=== PATIENT | male | born 1995 | race Caucasian/White ===

== ENCOUNTER 2025-03-17 04:23 | Inpatient (IN) | payer BC ==
[~2025-03-17] VITALS: Ht 177.8 cm; Wt 124.6 kg
--- NOTE | 2025-03-17 04:43 | ED.PDOC ---
GI ASSESSMENT HPI Comments 29-year-old male who came to ER for abdominal pain. Patient states about 2 hours ago, he woke up due to sudden-onset abdominal pain, right lower quadrant, sharp, stabbing, nonradiating, constant, associated nausea and vomiting. Denies any prior history of similar abdominal pain. Denies any history of abdominal surgeries. Chief Complaint: Abdominal Pain Time Seen by MD: 04:42 Primary Care Provider: REA Das Notes: Nurses Notes Allergies: Coded Allergies: NO KNOWN ALLERGIES (Unverified , 10/17/15) Information Source: Patient Mode of Arrival: Ambulatory Timing: Hours Duration: Since onset Prehospital treatment: None Quality: Sharp, Stabbing Vomitus: Watery Stool: Normal Severity: Moderate Recent: None Recent Hx of: None Pain Location: RLQ Modifying Factors: Nothing Associated sign and symptoms: Nausea, Vomiting, Abdominal Pain Past Medical History PAST MEDICAL HISTORY: Denies Surgical History: Denies all surgeries Family History Family History: Unknown Social History Smoker: Non-Smoker Alcohol: Occasionally Drugs: Denies Drug Use Lives In: Home Constitutional: denies: chills, diaphoresis, fatigue, fever, malaise, sweats, weakness, others EENTM: denies: blurred vision, double vision, ear bleeding, ear discharge, ear drainage, ear pain, ear ringing, eye pain, eye redness, hearing loss, mouth pain, mouth swelling, nasal discharge, nose bleeding, nose congestion, nose pain, photophobia, tearing, throat pain, throat swelling, voice changes, others Respiratory: denies: cough, hemoptysis, orthopnea, SOB at rest, shortness of breath, SOB with excertion, stridor, wheezing, others Cardiovascular: denies: chest pain, dizzy spells, diaphoresis, Dyspnea on exertion, edema, irregular heart beat, left arm pain, lightheadedness, palpitations, PND, syncope, others Gastrointestinal: reports: abdominal pain, nausea, vomiting; denies: abdomen distended, blood streaked bowels, constipated, diarrhea, dysphagia, difficulty swallowing, hematemesis, melena, poor appetite, poor fluid intake, rectal bleeding, rectal pain, others Genitourinary: denies: burning, dysuria, flank pain, frequency, hematuria, incontinence, penile discharge, penile sore, pain, testicle pain, testicle swelling, urgency, others Neurological: denies: dizziness, fainting, headache, left sided numbness, left sided weakness, numbness, paresthesia, pre-existing deficit, right sided numbness, right sided weakness, seizure, speech problems, tingling, tremors, weakness, others Musculoskeletal: denies: back pain, gout, joint pain, joint swelling, muscle pain, muscle stiffness, neck pain, others Integumetry: denies: bruises, change in color, change in hair/nails, dryness, laceration, lesions, lumps, rash, wounds, others Allergic/Immunocompromised: denies: Difficulty Healing, Frequent Infections, Hives, Itching, others Hematologic/Lymphatic: denies: anemia, blood clots, easy bleeding, easy bruising, swollen glands, others Endocrine: denies: excessive hunger, excessive sweating, excessive thirst, excessive urination, flushing, intolerance to cold, intolerance to heat, unexplained weight gain, unexplained weight loss, others Psychiatric: denies: anxiety, bipolar disorder, depression, hopeless, panic disorder, schizophrenia, sleepless, suicidal, others Physical Exam General Appearance: No Apparent Distress, Normal HEENT: Normal ENT Inspection, Pharynx Normal, TMs Normal Neck: Full Range of Motion, Non-Tender, Normal, Normal Inspection Respiratory: Chest Non-Tender, Lungs Clear, No Accessory Muscle Use, No Respiratory Distress, Normal Breath Sounds Cardiovascular: No Edema, No JVD, No Murmur, No Gallop, Normal Peripheral Pulses, Regular Rate/Rhythm Breast Exam: Deferred Gastrointestinal: No Organomegaly, No Pulsatile Mass, Normal Bowel Sounds, RLQ, Soft, Tenderness Genitalia: Deferred Pelvic: Deferred Rectal: Deferred Extremities: No calf tenderness, Normal capillary refill, Normal inspection, Normal range of motion, Non-tender, No pedal edema Musculoskeletal : Apperance: Normal Neurologic: Alert, group work program aide II-XII nml as Tested, No Motor Deficits, Normal Affect, Normal Mood, No Sensory Deficits Cerebellar Function: Normal Reflexes: Normal Skin: Dry, Normal Color, Warm Lymphatic: No Adenopathy Was a procedure done? Was a procedure done?: No GI differential Dx Differential Diagnosis: Appendicitis, Cholecystitis, Diverticular disease, Gastritis/PUD, Gastroenteritis, Ovarian cyst/torsion, UTI, Urolithiasis X-Ray, Labs, Meds, VS Vital Signs Date Time Temp Pulse Resp B/P (MAP) Pulse Ox O2 Delivery O2 Flow Rate FiO2 03/17/25 05:32 Room Air* 0 21 03/17/25 05:32 98.1 86 18 118/63 (81) 95 98.1 03/17/25 05:29 86 18 118/63 03/17/25 04:38 98.1 86 18 118/63 (81) 95 98.1 Lab Test 03/17/25 04:40 Range/Units White Blood Count 8.6 4.4-10.8 10^3/uL Red Blood Count 4.93 4.5-5.90 10^6/uL Hemoglobin 14.7 13.5-17.5 g/dL Hematocrit 43.4 41.0-53.0 % Mean Corpuscular Volume 88.0 80.0-100.0 fL Mean Corpuscular Hemoglobin 29.9 28.0-32.0 pg Mean Corpuscular Hemoglobin Concent 33.9 32.0-36.0 g/dL Red Cell Distribution Width 13.0 11.8-14.3 % Platelet Count 421 140-450 10^3/uL Mean Platelet Volume 7.6 6.9-10.8 fL Neutrophils (%) (Auto) 74.2 37.0-80.0 % Lymphocytes (%) (Auto) 20.0 10.0-50.0 % Monocytes (%) (Auto) 5.0 0.0-12.0 % Eosinophils (%) (Auto) 0.3 0.0-7.0 % Basophils (%) (Auto) 0.5 0.0-2.0 % Neutrophils # (Auto) 6.4 1.6-8.6 10 ^3/uL Lymphocytes # (Auto) 1.7 0.4-5.4 10 ^3/uL Monocytes # (Auto) 0.4 0-1.3 10 ^3/uL Eosinophils # (Auto) 0 0-0.8 10 ^3/uL Basophils # (Auto) 0 0-0.2 10 ^3/uL Nucleated Red Blood Cells 0.0 % Sodium Level 141 136-145 mmol/L Potassium Level 4.3 3.5-5.1 mmol/L Chloride Level 107 98-107 mmol/L Carbon Dioxide Level 24 20-31 mmol/L Anion Gap 10 5-15 Blood Urea Nitrogen 15 9-23 mg/dL Creatinine 1.45 H 0.700-1.30 mg/dL Glomerular Filtration Rate Calc 66 >90 mL/min BUN/Creatinine Ratio 10.3 10.0-20.0 Serum Glucose 140 H 74-106 mg/dL Lactic Acid Level 2.6 *H 0.4-2.0 mmol/L Calcium Level 9.4 8.7-10.4 mg/dL Total Bilirubin 0.5 0.2-1.0 mg/dL Aspartate Amino Transferase (AST) 49 H 13-40 U/L Alanine Aminotransferase (ALT) 40 7-40 U/L Alkaline Phosphatase 84 46-116 U/L Total Protein 7.8 5.7-8.2 g/dL Albumin 5.1 H 3.2-4.8 g/dL Current Medications Medications (Trade) Dose Ordered Sig/Alba Route Start Time Stop Time Status Last Admin Sodium Chloride 1,000 ml @ 1,000 mls/hr Q1H ONCE IV 03/17/25 04:45 03/17/25 05:44 DC 03/17/25 05:30 Ondansetron HCl (Zofran) 4 mg ONCE ONCE IV 03/17/25 04:45 03/17/25 04:46 DC 03/17/25 05:29 Morphine Sulfate 4 mg ONCE ONCE IV 03/17/25 04:45 03/17/25 04:46 DC 03/17/25 05:29 Famotidine (Pepcid Injection) 20 mg ONCE ONCE IV 03/17/25 04:45 03/17/25 04:46 DC 03/17/25 05:30 Time of 1ST Reevaluation: 04:39 Reevaluation 1ST: Unchanged Patient Education/Counseling: Diagnosis, Treatment Family Education/Counseling: No Family Present Departure 1 Departure Time of Disposition: 06:07 (Patient presented with abdominal pain that was concerning for possible appendicits, gastritis, cholecystitis, colitis, gastroenteritis, sbo, or orther possible surgical emergency. Data: 1. I ordered and reviewed the result of at least 3 labs including a CBC, BMP, and Urinalysis. 2. I independently interpreted the following tests: CT Abdoment and Pelvis is concerning for ureteral colic.Risk:This patient has a high risk of morbidity due to further diagnostic testing or treatment and may suffer from an acute abdominal process disorder. Workup reveals obstructing 3 mm stone with intractable abdominal pain and patient should be admitted for further workup. and possible expert consultation. ) Impression: Primary Impression: Renal colic on right side Additional Impression: Intractable abdominal pain Disposition: ADMITTED INPATIENT Admit to: Med Surg Condition: Serious Critical Care Note Critical Care Time?: Yes Critical care comment: Intractable abdominal pain Authorized and Performed by: Harmeet Lieberman MD Total critical care time: Approximately 38 minutes Due to a high probability of clinically significant, life threatening deterioration, the patient required my highest level of preparedness to intervene emergently and I personally spent this critical care time directly and personally managing the patient. This critical care time included obtaining a history; examining the patient; pulse oximetry; ordering and review of studies; arranging urgent treatment with development of a management plan; evaluation of patient's response to treatment; frequent reassessment; and, discussions with other providers. This critical care time was performed to assess and manage the high probability of imminent, life-threatening deterioration that could result in multi-organ failure. It was exclusive of separately billable procedures and treating other patients and teaching time. Please see my other sections and the rest of the note for further information on patient assessment and treatment. Stability Stability form required: No Heart Score Heart Score: Heart Score Response (Comments) Value History N/A 0 EKG N/A 0 Age N/A 0 Risk Factors N/A 0 Troponin N/A 0 Total 0 I personally scribed for HARMEET LIEBERMAN MD ([email or web address]) on 03/17/25 at 04:43. Electronically submitted by Tyson Mendenhall ([email or web address]). HARMEET LIEBERMAN MD March 17, 2025 04:43
[2025-03-17 04:58] LABS: Basophils # (auto) 0 10 ^3/uL (0-0.2); Basophils % (auto) 0.5 % (0.0-2.0); Eosinophils # (auto) 0 10 ^3/uL (0-0.8); Eosinophils % (auto) 0.3 % (0.0-7.0); Hematocrit 43.4 % (41.0-53.0); Hemoglobin 14.7 g/dL (13.5-17.5); Lymphocytes # (auto) 1.7 10 ^3/uL (0.4-5.4); Mean Corpuscular Hemoglobin 29.9 pg (28.0-32.0); Mean Corpuscular Hgb Conc. 33.9 g/dL (32.0-36.0); Monocytes # (auto) 0.4 10 ^3/uL (0-1.3); Neutrophils # (auto) 6.4 10 ^3/uL (1.6-8.6); Neutrophils % (auto) 74.2 % (37.0-80.0); Platelet Count (auto) 421 10^3/uL (140-450); Red Blood Cells 4.93 10^6/uL (4.5-5.90); White Blood Cell 8.6 10^3/uL (4.4-10.8)
[2025-03-17 05:17] LABS: Alkaline Phosphatase 84 U/L (46-116); Anion Gap 10 (5-15); BUN/Creatinine Ratio 10.3 (10.0-20.0); Bilirubin, Total 0.5 mg/dL (0.2-1.0); Blood Urea Nitrogen 15 mg/dL (9-23); Calcium 9.4 mg/dL (8.7-10.4); Carbon Dioxide 24 mmol/L (20-31); Chloride 107 mmol/L (98-107); Potassium 4.3 mmol/L (3.5-5.1); Sodium 141 mmol/L (136-145); Total Protein 7.8 g/dL (5.7-8.2)
[2025-03-17 05:21] LABS: Alanine Aminotransferase 40 U/L (7-40); Albumin 5.1 g/dL (3.2-4.8); Aspartate Aminotransferase 49 U/L (13-40); Glucose 140 mg/dL (74-106); Lactic Acid w/Reflex 2.6 mmol/L (0.4-2.0)
[2025-03-17] MEDS: ONDANSETRON HCL 4 MG/2 ML VIAL IV ONE ×2 (05:29→06:26)
[2025-03-17] MEDS: MORPHINE SULFATE 4 MG/ML SYR/VIAL IV ONE ×2 (05:29→06:26)
[2025-03-17] MEDS: SODIUM CHLORIDE 0.9% 1,000 ML IV ONE ×2 (05:30→06:35)
[2025-03-17] MEDS: FAMOTIDINE (10MG/ML) 2ML VL IV ONE (05:30)
[2025-03-17] MEDS: IOHEXOL 300 MG/ML 100ML BOTTLE IJ ONE (05:47)
--- NOTE | 2025-03-17 06:04 | DVH ---
Exam: CT CT AB PEL WITH IV CON ONLY History: rlq pain Comparison Study: None available at time of dictation. Contrast: Type of contrast: Omnipaque 300 Contrast injected: 100 mL Contrast wasted: 0 TECHNIQUE: CT scan of the abdomen pelvis was performed from the lung bases to the proximal femurs wit h intravenous contrast. Coronal and sagittal reformatted images are provided. Radiation Dose Information: CT Dose: CTDI volume is 25.3 mGy. Dose-length product is 1545.2 mGy*cm FINDINGS: Lung Bases: No acute or significant lung base finding. Normal heart size. No pleural or pericardial effusion. Liver: The liver is normal in size. No focal lesions. Normal hepatic vascular enhancement. Gallbladder and Biliary Tree: The gallbladder is unremarkable. No biliary ductal dilatation. Spleen: Unremarkable Pancreas: The pancreas is normal in appearance without focal lesions or abnormal enhancement. Adrenal Glands: Unremarkable Kidneys: Diminished enhancement of the right kidney as compared to the left kidney. There is mild rig ht hydroureteronephrosis to the level of a 3 mm distal right ureteral calculus. Bladder: Unremarkable GI tract: The stomach is grossly normal in appearance. Small bowel and colon are normal in caliber an d distribution. The appendix is visualized and is normal. Intraperitoneal cavity: No pneumoperitoneum. No ascites. Lymphadenopathy: No mesenteric, retroperitoneal or periportal lymphadenopathy. Abdominal Wall and Mesentery: Unremarkable. Vasculature: The visualized abdominal aorta is normal in size and caliber. Abdominal and pelvic vess els demonstrate normal enhancement. Pelvic Organs: Unremarkable Musculoskeletal: No aggressive focal bony lesions, acute fractures or dislocation. Soft tissues: Unremarkable. IMPRESSION: 1. Mild right hydroureteronephrosis due to 3 mm obstructive distal right ureteral calculus. All CT scans at this medical facility are performed using dose modulation techniques as appropriate t o a performed exam including the following: Automated exposure control was utilized; adjustment of th e MA and/or KV according to patient size; and use of iterative reconstruction technique.
[2025-03-17] MEDS: KETOROLAC TROMETH 30 MG/ML 1ML VIAL IV ONE (06:26)
[2025-03-17] MEDS: TAMSULOSIN HYDROCHLORIDE 0.4 MG CAP PO ONE (06:35)
[2025-03-17] MEDS ORDERED: ONDANSETRON HCL 4 MG/2 ML VIAL IV PRN (09:30)
[2025-03-17] MEDS ORDERED: ACETAMINOPHEN 325 MG TAB PO PRN (09:30)
--- NOTE | 2025-03-17 10:15 | DVHHP2 ---
History of Present Illness Reason for Visit: Abdominal pain with nausea and vomiting History of Present Illness Blanco Love is a 29-year-old male with no past medical history who reports to the ED with abdominal pain with nausea and vomiting. Patient states that he was drinking last night and suddenly developed 7/10 sharp stabbing radiating from his right flank down to his testicle constant in nature. Patient denies any chest pain, shortness of breath, lightheadedness, weakness, dizziness, diarrhea, recent ingestion of spoiled food, recent travels, or recent sick contacts. Past Surgical History: None Family History: None Smoke: No ALCOHOL: occassional Drugs: None Lives: with Family Domestic Violence: Neg Review of Systems Gastrointestinal: Nausea, Vomiting, Abdominal Pain Allergies: Coded Allergies: NO KNOWN ALLERGIES (Unverified , 10/17/15) Medications Current Medications Medications Dose Ordered Sig/Alba Route Start Time Stop Time Status Last Admin Dose Admin Sodium Chloride 1,000 ml @ 100 mls/hr Q10H IV 03/17/25 09:30 UNV Acetaminophen/ Hydrocodone Bitart 1 tab Q4HP PRN PO 03/17/25 09:30 UNV Ondansetron HCl 4 mg Q4HP PRN IV 03/17/25 09:30 UNV Acetaminophen 650 mg Q6HP PRN PO 03/17/25 09:30 UNV Morphine Sulfate 2 mg Q4HPRN PRN IV 03/17/25 09:30 UNV Ceftriaxone Sodium 50 ml @ 100 mls/hr DAILY@09 IV 03/17/25 09:30 UNV Exam Vital Signs Vital Signs Date Time Temp Pulse Resp B/P (MAP) Pulse Ox O2 Delivery O2 Flow Rate FiO2 03/17/25 08:38 98.9 85 20 101/60 (74) 97 98.9 03/17/25 05:32 Room Air* 0 21 General Appearance: Alert, Oriented X3, Cooperative, mild distress HEENT: Atraumatic, PERRLA, EOMI, Mucous membr. moist/pink Respiratory: Clear to auscultation, Normal air movement Cardiovascular: Regular rate, Normal S1, Normal S2, No murmurs Abdominal: Normal bowel sounds, Soft Extremities: No clubbing, No cyanosis, Normal pulses Skin: No significant lesion Neuro: Normal gait, Normal speech, Strength at 5/5 X4 ext, Normal tone, Sensation intact Psych/Mental Status: Mental status NL, Mood NL Labs/Xrays Labs Test 03/17/25 06:35 03/17/25 04:40 Range/Units Lactic Acid Level 2.8 *H 0.4-2.0 mmol/L White Blood Count 8.6 4.4-10.8 10^3/uL Red Blood Count 4.93 4.5-5.90 10^6/uL Hemoglobin 14.7 13.5-17.5 g/dL Hematocrit 43.4 41.0-53.0 % Mean Corpuscular Volume 88.0 80.0-100.0 fL Mean Corpuscular Hemoglobin 29.9 28.0-32.0 pg Mean Corpuscular Hemoglobin Concent 33.9 32.0-36.0 g/dL Red Cell Distribution Width 13.0 11.8-14.3 % Platelet Count 421 140-450 10^3/uL Mean Platelet Volume 7.6 6.9-10.8 fL Neutrophils (%) (Auto) 74.2 37.0-80.0 % Lymphocytes (%) (Auto) 20.0 10.0-50.0 % Monocytes (%) (Auto) 5.0 0.0-12.0 % Eosinophils (%) (Auto) 0.3 0.0-7.0 % Basophils (%) (Auto) 0.5 0.0-2.0 % Neutrophils # (Auto) 6.4 1.6-8.6 10 ^3/uL Lymphocytes # (Auto) 1.7 0.4-5.4 10 ^3/uL Monocytes # (Auto) 0.4 0-1.3 10 ^3/uL Eosinophils # (Auto) 0 0-0.8 10 ^3/uL Basophils # (Auto) 0 0-0.2 10 ^3/uL Nucleated Red Blood Cells 0.0 % Sodium Level 141 136-145 mmol/L Potassium Level 4.3 3.5-5.1 mmol/L Chloride Level 107 98-107 mmol/L Carbon Dioxide Level 24 20-31 mmol/L Anion Gap 10 5-15 Blood Urea Nitrogen 15 9-23 mg/dL Creatinine 1.45 H 0.700-1.30 mg/dL Glomerular Filtration Rate Calc 66 >90 mL/min BUN/Creatinine Ratio 10.3 10.0-20.0 Serum Glucose 140 H 74-106 mg/dL Calcium Level 9.4 8.7-10.4 mg/dL Total Bilirubin 0.5 0.2-1.0 mg/dL Aspartate Amino Transferase (AST) 49 H 13-40 U/L Alanine Aminotransferase (ALT) 40 7-40 U/L Alkaline Phosphatase 84 46-116 U/L Total Protein 7.8 5.7-8.2 g/dL Albumin 5.1 H 3.2-4.8 g/dL Exam: CT CT AB PEL WITH IV CON ONLY History: rlq pain Comparison Study: None available at time of dictation. Contrast: Type of contrast: Omnipaque 300 Contrast injected: 100 mL Contrast wasted: 0 TECHNIQUE: CT scan of the abdomen pelvis was performed from the lung bases to the proximal femurs with intravenous contrast. Coronal and sagittal reformatted images are provided. Radiation Dose Information: CT Dose: CTDI volume is 25.3 mGy. Dose-length product is 1545.2 mGy*cm FINDINGS: Lung Bases: No acute or significant lung base finding. Normal heart size. No pleural or pericardial effusion. Liver: The liver is normal in size. No focal lesions. Normal hepatic vascular enhancement. Gallbladder and Biliary Tree: The gallbladder is unremarkable. No biliary ductal dilatation. Spleen: Unremarkable Pancreas: The pancreas is normal in appearance without focal lesions or abnormal enhancement. Adrenal Glands: Unremarkable Kidneys: Diminished enhancement of the right kidney as compared to the left kidney. There is mild right hydroureteronephrosis to the level of a 3 mm distal right ureteral calculus. Bladder: Unremarkable GI tract: The stomach is grossly normal in appearance. Small bowel and colon are normal in caliber and distribution. The appendix is visualized and is normal. Intraperitoneal cavity: No pneumoperitoneum. No ascites. Lymphadenopathy: No mesenteric, retroperitoneal or periportal lymphadenopathy. Abdominal Wall and Mesentery: Unremarkable. Vasculature: The visualized abdominal aorta is normal in size and caliber. Abdominal and pelvic vessels demonstrate normal enhancement. Pelvic Organs: Unremarkable Musculoskeletal: No aggressive focal bony lesions, acute fractures or dislocation. Soft tissues: Unremarkable. IMPRESSION: 1. Mild right hydroureteronephrosis due to 3 mm obstructive distal right ureteral calculus. Assessment/Plan Assessment/Plan Assessment Intractable abdominal pain with nausea and vomiting Mild right hydroureteralnephrosis due to 3 mm obstruction distal right ureteral calculus Alcohol use Obesity Lactic acidosis likely due to ureteral obstruction rule out sepsis PEGGY Plan Admit to [facility] IV antibiotics-ceftriaxone Lactic UA ordered UDS ordered CT abdomen and pelvis noted Flomax Pain management NS 2 L given in ED Antiemetics Blood culture Urine culture Ultrasound kidney IV fluids Diet Per patient no home medications that he takes DVT prophylaxis-not indicated patient ambulates PUD prophylaxis-PPIs Discussed plan of care with patient and nurse Urology consult Counseled patient on cessation of alcohol use Counseled patient on lifestyle modifications, diet, and exercise Plan discussed with: Patient My Orders Orders - ANA CHAVEZ Procedure Category Date Status Time * Urology Consult CONS 03/17/25 Transmitted 09:22 Sodium Chloride 0.9% PHA 03/17/25 Logged 09:30 Blood Culture DESTINY 03/17/25 Transmitted 09:25 Urine Bacterial DESTINY 03/17/25 Transmitted Culture 09:25 Admit ADMIT 03/17/25 Transmitted 09:25 Allergies ROMAN 03/17/25 In Process 09:25 Code Status CODE 03/17/25 Transmitted 09:25 Hydrocodone-Acet PHA 03/17/25 Logged 5/325mg Tab ([place] 09:30 Ondansetron Hcl PHA 03/17/25 Logged (Zofran) 09:30 Complete Blood Count LAB 03/18/25 Verified 04:00 Comprehensive LAB 03/18/25 Verified Metabolic Panel 04:00 Cardiac DIET 03/17/25 Transmitted Diet-2gna,Lofat,Lochol Breakfast Acetaminophen Tablet PHA 03/17/25 Logged (Tylenol Tablet) 09:30 Morphine Sulfate PHA 03/17/25 Logged Injection 09:30 Ceftriaxone 1gm/50ml PHA 03/17/25 Logged D5w (Rocephin) 09:30 Tamsulosin PHA 03/17/25 Verified Hydrochloride (Flomax) 18:00 Kidney US 03/17/25 Verified 10:08 Date of Service: March 17, 2025 Billing Provider: ANA CHAVEZ Common Visit Codes: [id number] INP/OBS CARE (HIGH) ANA CHAVEZ March 17, 2025 10:15
[2025-03-17 10:40] VITALS: BP 118/70; PULSE 87; RESP 16; TEMP 98.1; O2SAT 98
[2025-03-17 10:52] VITALS: BP 118/70; PULSE 87; TEMP 98.1; O2SAT 98
[2025-03-17] MEDS: SODIUM CHLORIDE 0.9% 1,000 ML IV SCH (11:20)
[2025-03-17] MEDS: cefTRIAXone 1GM/50ML D5W 50 ML IV SCH (11:22)
[2025-03-17] MEDS: MORPHINE SULFATE INJ 2 MG/ml SYRG IV PRN (11:25)
--- NOTE | 2025-03-17 11:26 | DVH ---
US KIDNEY HISTORY: right flank pain COMPARISON: None TECHNIQUE: Transverse and longitudinal grayscale and color doppler images were obtained of the kidney s and bladder. FINDINGS: Right kidney: Size: 10.4 cm Cortical thickness: Normal Echogenicity: Normal Stones: None Masses: None Hydronephrosis: Mild Ureters: Not well visualized. Other: None Left kidney: Size: 10.4 cm Cortical thickness: Normal Echogenicity: Normal Stones: None Masses: None Hydronephrosis: None Ureters: Not well visualized. Other: None Bladder: Normal Other: None. IMPRESSION: Mild right hydronephrosis.
[2025-03-17 13:00] VITALS: BP 115/62; PULSE 82; RESP 16; TEMP 98.2; O2SAT 99
--- NOTE | 2025-03-17 13:19 | DVHINCON2 ---
Date of service: March 17, 2025 Referring Physician Hospitalist Reason for Consultation 3 mm right ureteral stone History of Present Illness 29-year-old male with no past medical history who reports to the ED with abdominal pain with nausea and vomiting. Patient states that he was drinking last night and suddenly developed 7/10 sharp stabbing radiating from his right flank down to his testicle constant in nature. Patient denies any chest pain, shortness of breath, lightheadedness, weakness, dizziness, diarrhea, recent ingestion of spoiled food, recent travels, or recent sick contacts. CT Scan shows 3 mm right distal UVJ stone with minimal hydronephrosis. Labs WNL. Past Medical History NA Past Surgical History None Family History: FH: breast cancer G8 MOTHER Allergies: Coded Allergies: NO KNOWN ALLERGIES (Unverified , 10/17/15) Current Medications Current Medications Medications (Trade) Dose Ordered Sig/Alba Route PRN Reason Start Time Stop Time Status Last Admin Sodium Chloride 1,000 ml @ 100 mls/hr Q10H IV 03/17/25 09:30 03/17/25 11:20 Acetaminophen/ Hydrocodone Bitart ([place] 5/325MG Tab) 1 tab Q4HP PRN PO MODERATE PAIN (4-6 PAIN SCALE) 03/17/25 09:30 Ondansetron HCl (Zofran) 4 mg Q4HP PRN IV NAUSEA / VOMITING 03/17/25 09:30 Acetaminophen (Tylenol Tablet) 650 mg Q6HP PRN PO PAIN SCALE 1-3 OR TEMP>100.4 03/17/25 09:30 Morphine Sulfate 2 mg Q4HPRN PRN IV SEVERE PAIN (7-10 PAIN SCALE) 03/17/25 09:30 03/17/25 11:25 Ceftriaxone Sodium 50 ml @ 100 mls/hr DAILY@09 IV 03/17/25 09:30 03/17/25 11:22 Tamsulosin HCl (Flomax) 0.4 mg QPM PO 03/17/25 18:00 Pantoprazole Sodium (Protonix) 40 mg DAILY IV 03/18/25 10:00 Review of Systems Gastrointestinal: Nausea, Vomiting, Abdominal Pain Allergies: Coded Allergies: NO KNOWN ALLERGIES (Unverified , 10/17/15) Medications Current Medications Medications Dose Ordered Sig/Alba Route Start Time Stop Time Status Last Admin Dose Admin Sodium Chloride 1,000 ml @ 100 mls/hr Q10H IV 03/17/25 09:30 UNV Acetaminophen/ Hydrocodone Bitart 1 tab Q4HP PRN PO 03/17/25 09:30 UNV Ondansetron HCl 4 mg Q4HP PRN IV 03/17/25 09:30 UNV Acetaminophen 650 mg Q6HP PRN PO 03/17/25 09:30 UNV Morphine Sulfate 2 mg Q4HPRN PRN IV 03/17/25 09:30 UNV Ceftriaxone Sodium 50 ml @ 100 mls/hr DAILY@09 IV 03/17/25 09:30 UNV Vital Signs Vital Signs Date Time Temp Pulse Resp B/P (MAP) Pulse Ox O2 Delivery O2 Flow Rate FiO2 03/17/25 11:25 87 16 118/70 03/17/25 10:52 98.1 98 98.1 03/17/25 05:32 Room Air* 0 21 Physical Exam Vital Signs Date Time Temp Pulse Resp B/P (MAP) Pulse Ox O2 Delivery O2 Flow Rate FiO2 03/17/25 08:38 98.9 85 20 101/60 (74) 97 98.9 03/17/25 05:32 Room Air* 0 21 General Appearance: Alert, Oriented X3, Cooperative, mild distress HEENT: Atraumatic, PERRLA, EOMI, Mucous membr. moist/pink Respiratory: Clear to auscultation, Normal air movement Cardiovascular: Regular rate, Normal S1, Normal S2, No murmurs Abdominal: Normal bowel sounds, Soft Extremities: No clubbing, No cyanosis, Normal pulses Skin: No significant lesion Neuro: Normal gait, Normal speech, Strength at 5/5 X4 ext, Normal tone, Sensation intact Psych/Mental Status: Mental status NL, Mood NL Labs/Diagnostic Data Labs Test 03/17/25 06:35 03/17/25 04:40 Range/Units Lactic Acid Level 2.8 *H 0.4-2.0 mmol/L White Blood Count 8.6 4.4-10.8 10^3/uL Red Blood Count 4.93 4.5-5.90 10^6/uL Hemoglobin 14.7 13.5-17.5 g/dL Hematocrit 43.4 41.0-53.0 % Mean Corpuscular Volume 88.0 80.0-100.0 fL Mean Corpuscular Hemoglobin 29.9 28.0-32.0 pg Mean Corpuscular Hemoglobin Concent 33.9 32.0-36.0 g/dL Red Cell Distribution Width 13.0 11.8-14.3 % Platelet Count 421 140-450 10^3/uL Mean Platelet Volume 7.6 6.9-10.8 fL Neutrophils (%) (Auto) 74.2 37.0-80.0 % Lymphocytes (%) (Auto) 20.0 10.0-50.0 % Monocytes (%) (Auto) 5.0 0.0-12.0 % Eosinophils (%) (Auto) 0.3 0.0-7.0 % Basophils (%) (Auto) 0.5 0.0-2.0 % Neutrophils # (Auto) 6.4 1.6-8.6 10 ^3/uL Lymphocytes # (Auto) 1.7 0.4-5.4 10 ^3/uL Monocytes # (Auto) 0.4 0-1.3 10 ^3/uL Eosinophils # (Auto) 0 0-0.8 10 ^3/uL Basophils # (Auto) 0 0-0.2 10 ^3/uL Nucleated Red Blood Cells 0.0 % Sodium Level 141 136-145 mmol/L Potassium Level 4.3 3.5-5.1 mmol/L Chloride Level 107 98-107 mmol/L Carbon Dioxide Level 24 20-31 mmol/L Anion Gap 10 5-15 Blood Urea Nitrogen 15 9-23 mg/dL Creatinine 1.45 H 0.700-1.30 mg/dL Glomerular Filtration Rate Calc 66 >90 mL/min BUN/Creatinine Ratio 10.3 10.0-20.0 Serum Glucose 140 H 74-106 mg/dL Calcium Level 9.4 8.7-10.4 mg/dL Total Bilirubin 0.5 0.2-1.0 mg/dL Aspartate Amino Transferase (AST) 49 H 13-40 U/L Alanine Aminotransferase (ALT) 40 7-40 U/L Alkaline Phosphatase 84 46-116 U/L Total Protein 7.8 5.7-8.2 g/dL Albumin 5.1 H 3.2-4.8 g/dL PATIENT: SHINE PATRICK Jelly ACCT: [id number] UNIT: [id number] : 1995 LOC: ER ROOM / BED: / AGE / SEX: 29 / M ADM STATUS: REG ER SERVICE [id number] ORDERING PHYSICIAN: HARMEET LIEBERMAN MD PROCEDURE(s): ABPLIV - CT AB PEL WITH IV CON ONLY REASON: rlq pain ORDER NUMBER(s): [id number], ACCESSION NUMBER(s): [id number] Exam: CT CT AB PEL WITH IV CON ONLY History: rlq pain Comparison Study: None available at time of dictation. Contrast: Type of contrast: Omnipaque 300 Contrast injected: 100 mL Contrast wasted: 0 TECHNIQUE: CT scan of the abdomen pelvis was performed from the lung bases to the proximal femurs with intravenous contrast. Coronal and sagittal reformatted images are provided. Radiation Dose Information: CT Dose: CTDI volume is 25.3 mGy. Dose-length product is 1545.2 mGy*cm FINDINGS: Lung Bases: No acute or significant lung base finding. Normal heart size. No pleural or pericardial effusion. Liver: The liver is normal in size. No focal lesions. Normal hepatic vascular enhancement. Gallbladder and Biliary Tree: The gallbladder is unremarkable. No biliary ductal dilatation. Spleen: Unremarkable Pancreas: The pancreas is normal in appearance without focal lesions or abnormal enhancement. Adrenal Glands: Unremarkable Kidneys: Diminished enhancement of the right kidney as compared to the left kidn ey. There is mild right hydroureteronephrosis to the level of a 3 mm distal right ureteral calculus. Bladder: Unremarkable GI tract: The stomach is grossly normal in appearance. Small bowel and colon are normal in caliber and distribution. The appendix is visualized and is normal. Intraperitoneal cavity: No pneumoperitoneum. No ascites. Lymphadenopathy: No mesenteric, retroperitoneal or periportal lymphadenopathy. Abdominal Wall and Mesentery: Unremarkable. Vasculature: The visualized abdominal aorta is normal in size and caliber. Abdominal and pelvic vessels demonstrate normal enhancement. Pelvic Organs: Unremarkable Musculoskeletal: No aggressive focal bony lesions, acute fractures or dislocation. Soft tissues: Unremarkable. IMPRESSION: 1. Mild right hydroureteronephrosis due to 3 mm obstructive distal right ureteral calculus. All CT scans at this medical facility are performed using dose modulation techniques as appropriate to a performed exam including the following: Automated exposure control was utilized; adjustment of the MA and/or KV according to patient size; and use of iterative reconstruction technique. ATED BY: CODI OLIVIA MD DICTATED DATE/TIME: 03/17/25600 SIGNED BY: CODI OLIVIA MD SIGNED DATE/TIME: 03/17/25600 CC: Assessment 3 mm right distal ureteral stone Abdominal pain Plan/Recommendation Expulsive measures Plan for tentative inpatient therapy on Thursday03/20/25 with ESWL vs. URSLL Patient agrees with my recommendation Plan discussed with: Patient, Other BRAULIO KHALIL MD March 17, 2025 13:19
[2025-03-17] MEDS: MANNITOL FTV 25% 12.5 GM/50 ML 50 ML IV ONE ×2 (16:25→16:34)
[2025-03-17] MEDS: HYDROcodone-ACET 5/325MG TAB PO PRN (16:59)
[2025-03-17 17:30] VITALS: BP 117/60; PULSE 86; RESP 18; TEMP 98.1; O2SAT 95
[2025-03-17] MEDS: TAMSULOSIN HYDROCHLORIDE 0.4 MG CAP PO SCH (18:41)
[2025-03-17 21:00] VITALS: BP 106/59; PULSE 93; RESP 18; TEMP 98.5; O2SAT 97
[2025-03-18] VITALS (7 sets, daily range): BP systolic 106–132; BP diastolic 61–80; PULSE 59–88; RESP 17–18; TEMP 97.7–98.3; O2SAT 96–99
[2025-03-18 06:23] LABS: Basophils # (auto) 0 10 ^3/uL (0-0.2); Basophils % (auto) 0.2 % (0.0-2.0); Eosinophils # (auto) 0.1 10 ^3/uL (0-0.8); Eosinophils % (auto) 0.7 % (0.0-7.0); Hematocrit 36.8 % (41.0-53.0); Hemoglobin 12.5 g/dL (13.5-17.5); Lymphocytes # (auto) 2.8 10 ^3/uL (0.4-5.4); Lymphocytes % (auto) 24.6 % (10.0-50.0); Mean Corpuscular Hemoglobin 29.8 pg (28.0-32.0); Mean Corpuscular Hgb Conc. 33.8 g/dL (32.0-36.0); Mean Corpuscular Volume 88.3 fL (80.0-100.0); Monocytes # (auto) 1.1 10 ^3/uL (0-1.3); Monocytes % (auto) 9.9 % (0.0-12.0); Neutrophils # (auto) 7.4 10 ^3/uL (1.6-8.6); Neutrophils % (auto) 64.6 % (37.0-80.0); Platelet Count (auto) 306 10^3/uL (140-450); Red Blood Cells 4.17 10^6/uL (4.5-5.90); Red Cell Distribution Width 13.3 % (11.8-14.3); White Blood Cell 11.5 10^3/uL (4.4-10.8)
[2025-03-18 06:37] LABS: Alanine Aminotransferase 31 U/L (7-40); Albumin 4.1 g/dL (3.2-4.8); Alkaline Phosphatase 73 U/L (46-116); Anion Gap 8 (5-15); Aspartate Aminotransferase 33 U/L (13-40); BUN/Creatinine Ratio 13.6 (10.0-20.0); Blood Urea Nitrogen 19 mg/dL (9-23); Calcium 9.2 mg/dL (8.7-10.4); Carbon Dioxide 26 mmol/L (20-31); Chloride 106 mmol/L (98-107); Potassium 3.9 mmol/L (3.5-5.1); Sodium 140 mmol/L (136-145); Total Protein 6.5 g/dL (5.7-8.2)
[2025-03-18 06:38] LABS: Bilirubin, Total 0.6 mg/dL (0.2-1.0); Glucose 108 mg/dL (74-106)
[2025-03-18] MEDS: PANTOPRAZOLE 40 MG/10 ML VIAL INJ IV SCH (09:22)
--- NOTE | 2025-03-18 13:36 | DVHPN2 ---
Reviewed: Care Plan, H&P Changes from previous H/P or p: No Changes General: Per HPI Gastrointestinal: Nausea, Vomiting, Abdominal Pain Objective Vitals Vital Signs Date Time Temp Pulse Resp B/P (MAP) Pulse Ox O2 Delivery O2 Flow Rate FiO2 03/18/25 12:37 98.2 84 18 118/67 (84) 98 98.2 03/18/25 08:28 Room Air* 0 21 Intake/Output Intake and Output 03/18/25 07:00 Intake Total 2950 ml Balance 2950 ml Intake Oral 1900 ml IV Total 1050 ml # Voids 6 General Appearance: Alert, Oriented X3, Cooperative, No acute distress Cardiovascular: Regular rate, Normal S1 Medications Current Medications Medications Dose Ordered Sig/Alba Route Start Time Stop Time Status Last Admin Dose Admin Sodium Chloride 1,000 ml @ 100 mls/hr Q10H IV 03/17/25 09:30 03/18/25 03:12 100 MLS/HR Acetaminophen/ Hydrocodone Bitart 1 tab Q4HP PRN PO 03/17/25 09:30 03/18/25 12:19 1 TAB Ondansetron HCl 4 mg Q4HP PRN IV 03/17/25 09:30 Acetaminophen 650 mg Q6HP PRN PO 03/17/25 09:30 Morphine Sulfate 2 mg Q4HPRN PRN IV 03/17/25 09:30 03/18/25 03:10 2 MG Ceftriaxone Sodium 50 ml @ 100 mls/hr DAILY@09 IV 03/17/25 09:30 03/18/25 09:21 100 MLS/HR Tamsulosin HCl 0.4 mg QPM PO 03/17/25 18:00 03/17/25 18:41 0.4 MG Pantoprazole Sodium 40 mg DAILY IV 03/18/25 10:00 03/18/25 09:22 40 MG Laboratory Results Laboratory Tests 03/18/25 05:56 Chemistry Test 03/18/25 05:56 Albumin 4.1 g/dL (3.2-4.8) Calcium Level 9.2 mg/dL (8.7-10.4) Total Protein 6.5 g/dL (5.7-8.2) LFT Test 03/18/25 05:56 Alanine Aminotransferase (ALT) 31 U/L (7-40) Alkaline Phosphatase 73 U/L (46-116) Aspartate Amino Transferase (AST) 33 U/L (13-40) Total Bilirubin 0.6 mg/dL (0.2-1.0) Microbiology Microbiology Date/Time Source Procedure Growth Status 03/17/25 10:15 Blood Blood Culture - Preliminary NO GROWTH AFTER 24 HOURS OF INCUBATION. Resulted Labs and/or images reviewed: Labs reviewed by me, Image(s) reviewed by me Assessment/Plan Assessment/Plan Blanco Love is a 29-year-old male with no past medical history who reports to the ED with abdominal pain with nausea and vomiting. Patient states that he was drinking last night and suddenly developed 7/10 sharp stabbing radiating from his right flank down to his testicle constant in nature. Patient denies any chest pain, shortness of breath, lightheadedness, weakness, dizziness, diarrhea, recent ingestion of spoiled food, recent travels, or recent sick contacts. Intractable abdominal pain with nausea and vomiting Mild right hydroureteralnephrosis due to 3 mm obstruction distal right ureteral calculus Alcohol use Obesity Lactic acidosis likely due to ureteral obstruction rule out sepsis PEGGY pending lithotripsy per urology on Thursday Plan discussed with: Patient Date of Service: March 18, 2025 Billing Provider: FER COOK DO Common Visit Codes: [id number] INP/OBS CARE(HIGH) FER COOK DO March 18, 2025 13:36
--- NOTE | 2025-03-18 19:57 | DVHINCON2 ---
Date of service: March 18, 2025 Referring Physician Robert Mulligan MD Reason for Consultation Acute kidney injury History of Present Illness Blanco Love is a 29-year-old M with an unremarkable PMH who presented to the hospital with complaint of abdominal pain with nausea and vomiting. Patient states that he was drinking and suddenly developed 7/10 sharp stabbing pain radiating from his right flank down to his testicle, constant in nature. While in ED, CT Scan reported 3 mm right distal UVJ stone with minimal hydronephrosis. Patient denies any new complaints. Pain is controlled. AM labs are remarkable for Creatinine 1.40. Allergies: Coded Allergies: NO KNOWN ALLERGIES (Unverified , 10/17/15) Current Medications Family History: FH: breast cancer G8 MOTHER Review of Systems Gastrointestinal: Nausea, Vomiting, Abdominal Pain H&P Exam Vital Signs/I&O Vital Sign Date Time Temp Pulse Resp B/P (MAP) Pulse Ox O2 Delivery O2 Flow Rate FiO2 03/19/25 08:38 97.9 60 17 101/64 (76) 96 97.9 03/19/25 08:30 Room Air* 0 21 Intake and Output 03/18/25 03/19/25 19:00 07:00 Intake Total 600 ml 2000 ml Balance 600 ml 2000 ml Intake Oral 600 ml 900 ml IV Total 1100 ml # Voids 4 # Bowel Movements 1 Physical Exam Vitals and nursing notes reviewed. General Appearance: Cooperative, mild distress HEENT: Atraumatic, PERRLA, EOMI, Mucous membr. moist/pink Respiratory: Clear to auscultation, Normal air movement Cardiovascular: Regular rate, Normal S1, Normal S2, No murmurs Abdominal: Normal bowel sounds, Soft Extremities: No clubbing, No cyanosis, Normal pulses Skin: No significant lesion Neuro: Alert, Oriented x 3. Strength at 5/5 X4 ext, Normal tone, Sensation intact Psych/Mental Status: Mental status NL, Mood NL Labs/Diagnostic Data Labs/Diagnostic Data Laboratory Tests Test 03/18/25 22:09 03/18/25 05:56 03/17/25 06:35 03/17/25 04:40 Range/Units Urine Color Colorless Yellow Urine Clarity Clear Clear Urine pH 6.5 5.0-9.0 Urine Specific [place] 1.007 1.001-1.035 Urine Protein Negative Negative Urine Ketones Negative Negative Urine Blood Negative Negative /uL Urine Nitrite Negative Negative Urine Bilirubin Negative Negative Urine Urobilinogen Normal Negative mg/dL Urine Leukocyte Esterase Negative Negative /uL Urine RBC <1 0 - 3 /hpf Urine Microscopic WBC 1 0-3 /HPF Urine Squamous Epithelial Cells None seen <5 /hpf Urine Bacteria None seen None Seen /hpf Urine Glucose Normal Normal mg/dL Urine Opiates Screen Neg NEGATIVE Urine Fentanyl Screen Neg NEGATIVE Urine Barbiturates Screen Neg NEGATIVE Urine Phencyclidine Screen Neg NEGATIVE Urine Amphetamines Screen Neg NEGATIVE Urine Benzodiazepines Screen Neg NEGATIVE Urine Cocaine Screen Neg NEGATIVE Urine Cannabinoids Screen Neg NEGATIVE White Blood Count 11.5 #H 8.6 4.4-10.8 10^3/uL Red Blood Count 4.17 L 4.93 4.5-5.90 10^6/uL Hemoglobin 12.5 L 14.7 13.5-17.5 g/dL Hematocrit 36.8 #L 43.4 41.0-53.0 % Mean Corpuscular Volume 88.3 88.0 80.0-100.0 fL Mean Corpuscular Hemoglobin 29.8 29.9 28.0-32.0 pg Mean Corpuscular Hemoglobin Concent 33.8 33.9 32.0-36.0 g/dL Red Cell Distribution Width 13.3 13.0 11.8-14.3 % Platelet Count 306 421 140-450 10^3/uL Mean Platelet Volume 7.8 7.6 6.9-10.8 fL Neutrophils (%) (Auto) 64.6 74.2 37.0-80.0 % Lymphocytes (%) (Auto) 24.6 20.0 10.0-50.0 % Monocytes (%) (Auto) 9.9 5.0 0.0-12.0 % Eosinophils (%) (Auto) 0.7 0.3 0.0-7.0 % Basophils (%) (Auto) 0.2 0.5 0.0-2.0 % Neutrophils # (Auto) 7.4 6.4 1.6-8.6 10 ^3/uL Lymphocytes # (Auto) 2.8 1.7 0.4-5.4 10 ^3/uL Monocytes # (Auto) 1.1 0.4 0-1.3 10 ^3/uL Eosinophils # (Auto) 0.1 0 0-0.8 10 ^3/uL Basophils # (Auto) 0 0 0-0.2 10 ^3/uL Nucleated Red Blood Cells 0.0 0.0 % Sodium Level 140 141 136-145 mmol/L Potassium Level 3.9 4.3 3.5-5.1 mmol/L Chloride Level 106 107 98-107 mmol/L Carbon Dioxide Level 26 24 20-31 mmol/L Anion Gap 8 10 5-15 Blood Urea Nitrogen 19 15 9-23 mg/dL Creatinine 1.40 H 1.45 H 0.700-1.30 mg/dL Glomerular Filtration Rate Calc 69 66 >90 mL/min BUN/Creatinine Ratio 13.6 10.3 10.0-20.0 Serum Glucose 108 H 140 H 74-106 mg/dL Calcium Level 9.2 9.4 8.7-10.4 mg/dL Total Bilirubin 0.6 0.5 0.2-1.0 mg/dL Aspartate Amino Transferase (AST) 33 49 H 13-40 U/L Alanine Aminotransferase (ALT) 31 40 7-40 U/L Alkaline Phosphatase 73 84 46-116 U/L Total Protein 6.5 7.8 5.7-8.2 g/dL Albumin 4.1 5.1 H 3.2-4.8 g/dL Lactic Acid Level 2.8 *H 2.6 *H 0.4-2.0 mmol/L Assessment Intractable abdominal pain with nausea and vomiting Mild right hydroureteralnephrosis due to 3 mm obstruction distal right ureteral calculus Alcohol use Obesity Lactic acidosis likely due to ureteral obstruction rule out sepsis PEGGY Plan/Recommendation Agreement with your ongoing assessment and plan of care. Urology consulted. Planned for ESWL vs URSLL on 03/20. Daily lab monitoring to include renal function and electrolytes. Electrolyte replacement prn. IVFs. IV antibiotics with Ceftriaxone. F/u cultures. Pain management prn. Counseling on cessation of alcohol use. Additional plan as per the hospital course. Plan discussed with: Patient, Other (RN) ALBERT ARGUETA DO March 18, 2025 19:57
[2025-03-18 22:27] LABS: Urine Bacteria None Seen /hpf (None Seen)
[2025-03-18 22:36] LABS: Urine Blood Negative /uL (Negative); Urine Clarity Clear (Clear); Urine Color Colorless (Yellow); Urine Protein, UAD Negative (Negative); Urine Specific Gravity 1.007 (1.001-1.035); Urine Squamous Epithelial Cell None Seen /hpf (<5); Urine Urobilinogen Normal (Negative); Urine WBC 1 /HPF (0-3); Urine pH 6.5 (5.0-9.0)
[2025-03-18 22:48] LABS: Amphetamine Screen, Urine Neg (NEGATIVE); Barbiturate Scree,Urine Neg (NEGATIVE); Benzodiazephine Screen, Urine Neg (NEGATIVE); Cannabinoid Screen, Urine Neg (NEGATIVE); Cocaine Screen, Urine Neg (NEGATIVE); Opiate Scree,Urine Neg (NEGATIVE); Phencyclidine Screen, Urine Neg (NEGATIVE)
[2025-03-19] VITALS (8 sets, daily range): BP systolic 101–129; BP diastolic 57–75; PULSE 58–88; RESP 16–20; TEMP 97.9–98.5; O2SAT 96–98
--- NOTE | 2025-03-19 12:05 | DVHPN2 ---
Progress Note - Dictate Date Seen: March 19, 2025 Has the PT tested + for MRSA If YES, has PT been informed?: No Medical Necessity Reason Pt with a Central, PICC or Fol: No Subjective Patient is seen and evaluated in follow up. No acute events overnight. Patient denies any new complaints. Awaiting new labs. vital signs Vital Sign Date Time Temp Pulse Resp B/P (MAP) Pulse Ox O2 Delivery O2 Flow Rate FiO2 03/19/25 08:38 97.9 60 17 101/64 (76) 96 97.9 03/19/25 08:30 Room Air* 0 21 Total Intake and Output 03/18/25 03/18/25 03/19/25 15:00 23:00 07:00 Intake Total 600 ml 2000 ml Balance 600 ml 2000 ml medications Current Medications Medications Dose Ordered Sig/Alba Route Start Time Stop Time Status Last Admin Dose Admin Sodium Chloride 1,000 ml @ 100 mls/hr Q10H IV 03/17/25 09:30 03/19/25 04:49 Acetaminophen/ Hydrocodone Bitart 1 tab Q4HP PRN PO 03/17/25 09:30 03/19/25 11:18 Ondansetron HCl 4 mg Q4HP PRN IV 03/17/25 09:30 Acetaminophen 650 mg Q6HP PRN PO 03/17/25 09:30 Morphine Sulfate 2 mg Q4HPRN PRN IV 03/17/25 09:30 03/18/25 16:29 Ceftriaxone Sodium 50 ml @ 100 mls/hr DAILY@09 IV 03/17/25 09:30 03/19/25 09:36 Tamsulosin HCl 0.4 mg QPM PO 03/17/25 18:00 03/18/25 18:15 Pantoprazole Sodium 40 mg DAILY IV 03/18/25 10:00 03/19/25 09:36 objective Vitals and nursing notes reviewed. General Appearance: Cooperative, In no acute distress HEENT: Atraumatic, PERRLA, EOMI, Mucous membr. moist/pink Respiratory: Clear to auscultation, Normal air movement Cardiovascular: Regular rate, Normal S1, Normal S2, No murmurs Abdominal: Normal bowel sounds, Soft Extremities: No clubbing, No cyanosis, Normal pulses Skin: No significant lesion Neuro: Alert, Oriented x 3. Strength at 5/5 X4 ext, Normal tone, Sensation intact Psych/Mental Status: Mental status NL, Mood NL laboratory and microbiology Laboratory Tests 03/18/25 05:56 Test 03/18/25 05:56 Range/Units Serum Glucose 108 H 74-106 mg/dL Problem List Intractable abdominal pain with nausea and vomiting Mild right hydroureteralnephrosis due to 3 mm obstruction distal right ureteral calculus Alcohol use Obesity Lactic acidosis likely due to ureteral obstruction rule out sepsis PEGGY Assessment/Plan Agree with current supportive medical care. Pending ESWL vs URSLL per urology. Daily lab monitoring to include renal function and electrolytes. Electrolyte replacement prn. IVFs. Avoid nephrotoxic medications. IV antibiotics with Ceftriaxone. Flomax. GI prophylaxis. Pain management prn. Counseling on cessation of alcohol use. Additional plan as per the hospital course. Plan discussed with: Patient, Other (RN) ALBERT ARGUETA DO March 19, 2025 12:05
[2025-03-20] VITALS (7 sets, daily range): BP systolic 123–131; BP diastolic 57–84; PULSE 60–95; RESP 17–20; TEMP 97.6–99.6; O2SAT 96–98
--- NOTE | 2025-03-20 14:05 | DVHPN2 ---
Reviewed: Care Plan, H&P Changes from previous H/P or p: No Changes General: Per HPI Gastrointestinal: Nausea, Vomiting, Abdominal Pain Objective Vitals Vital Signs Date Time Temp Pulse Resp B/P (MAP) Pulse Ox O2 Delivery O2 Flow Rate FiO2 03/20/25 13:04 98.5 66 18 123/57 (79) 96 98.5 03/20/25 08:10 Room Air* 0 21 Intake/Output Intake and Output 03/20/25 07:00 Intake Total 1875 ml Balance 1875 ml Intake Oral 1825 ml IV Total 50 ml # Voids 11 Medications Current Medications Medications Dose Ordered Sig/Alba Route Start Time Stop Time Status Last Admin Dose Admin Sodium Chloride 1,000 ml @ 100 mls/hr Q10H IV 03/17/25 09:30 03/20/25 08:45 100 MLS/HR Acetaminophen/ Hydrocodone Bitart 1 tab Q4HP PRN PO 03/17/25 09:30 03/20/25 10:17 1 TAB Ondansetron HCl 4 mg Q4HP PRN IV 03/17/25 09:30 Acetaminophen 650 mg Q6HP PRN PO 03/17/25 09:30 Morphine Sulfate 2 mg Q4HPRN PRN IV 03/17/25 09:30 03/18/25 16:29 2 MG Ceftriaxone Sodium 50 ml @ 100 mls/hr DAILY@09 IV 03/17/25 09:30 03/20/25 08:45 100 MLS/HR Tamsulosin HCl 0.4 mg QPM PO 03/17/25 18:00 03/19/25 17:54 0.4 MG Pantoprazole Sodium 40 mg DAILY IV 03/18/25 10:00 03/19/25 09:36 40 MG Laboratory Results Laboratory Tests 03/18/25 05:56 Urinalysis Test 03/18/25 22:09 Urine Color Colorless (Yellow) Urine Clarity Clear (Clear) Urine pH 6.5 (5.0-9.0) Urine Specific [place] 1.007 (1.001-1.035) Urine Protein Negative (Negative) Urine Ketones Negative (Negative) Urine Blood Negative /uL (Negative) Urine Nitrite Negative (Negative) Urine Bilirubin Negative (Negative) Urine Urobilinogen Normal mg/dL (Negative) Urine Leukocyte Esterase Negative /uL (Negative) Urine RBC <1 /hpf (0 - 3) Urine Microscopic WBC 1 /HPF (0-3) Urine Squamous Epithelial Cells None seen /hpf (<5) Urine Bacteria None seen /hpf (None Seen) Urine Glucose Normal mg/dL (Normal) Microbiology Microbiology Date/Time Source Procedure Growth Status 03/18/25 22:09 Voided Urine Urine Culture - Preliminary Resulted 03/17/25 10:15 Blood Blood Culture - Preliminary NO GROWTH AFTER 72 HOURS OF INCUBATION. Resulted Labs and/or images reviewed: Labs reviewed by me, Image(s) reviewed by me Assessment/Plan Assessment/Plan Blanco Love is a 29-year-old male with no past medical history who reports to the ED with abdominal pain with nausea and vomiting. Patient states that he was drinking last night and suddenly developed 7/10 sharp stabbing radiating from his right flank down to his testicle constant in nature. Patient denies any chest pain, shortness of breath, lightheadedness, weakness, dizziness, diarrhea, recent ingestion of spoiled food, recent travels, or recent sick contacts. Intractable abdominal pain with nausea and vomiting Mild right hydroureteralnephrosis due to 3 mm obstruction distal right ureteral calculus Alcohol use Obesity Lactic acidosis likely due to ureteral obstruction rule out sepsis PEGGY pending lithotripsy per urology on Thursday Plan discussed with: Patient Date of Service: March 19, 2025 Billing Provider: FER COOK DO Common Visit Codes: [id number] INP/OBS CARE(HIGH) FER COOK DO March 20, 2025 14:05
--- NOTE | 2025-03-20 14:06 | DVHPN2 ---
Reviewed: Care Plan, H&P Changes from previous H/P or p: No Changes General: Per HPI Gastrointestinal: Nausea, Vomiting, Abdominal Pain Objective Vitals Vital Signs Date Time Temp Pulse Resp B/P (MAP) Pulse Ox O2 Delivery O2 Flow Rate FiO2 03/20/25 13:04 98.5 66 18 123/57 (79) 96 98.5 03/20/25 08:10 Room Air* 0 21 Intake/Output Intake and Output 03/20/25 07:00 Intake Total 1875 ml Balance 1875 ml Intake Oral 1825 ml IV Total 50 ml # Voids 11 Medications Current Medications Medications Dose Ordered Sig/Alba Route Start Time Stop Time Status Last Admin Dose Admin Sodium Chloride 1,000 ml @ 100 mls/hr Q10H IV 03/17/25 09:30 03/20/25 08:45 100 MLS/HR Acetaminophen/ Hydrocodone Bitart 1 tab Q4HP PRN PO 03/17/25 09:30 03/20/25 10:17 1 TAB Ondansetron HCl 4 mg Q4HP PRN IV 03/17/25 09:30 Acetaminophen 650 mg Q6HP PRN PO 03/17/25 09:30 Morphine Sulfate 2 mg Q4HPRN PRN IV 03/17/25 09:30 03/18/25 16:29 2 MG Ceftriaxone Sodium 50 ml @ 100 mls/hr DAILY@09 IV 03/17/25 09:30 03/20/25 08:45 100 MLS/HR Tamsulosin HCl 0.4 mg QPM PO 03/17/25 18:00 03/19/25 17:54 0.4 MG Pantoprazole Sodium 40 mg DAILY IV 03/18/25 10:00 03/19/25 09:36 40 MG Laboratory Results Laboratory Tests 03/18/25 05:56 Urinalysis Test 03/18/25 22:09 Urine Color Colorless (Yellow) Urine Clarity Clear (Clear) Urine pH 6.5 (5.0-9.0) Urine Specific [place] 1.007 (1.001-1.035) Urine Protein Negative (Negative) Urine Ketones Negative (Negative) Urine Blood Negative /uL (Negative) Urine Nitrite Negative (Negative) Urine Bilirubin Negative (Negative) Urine Urobilinogen Normal mg/dL (Negative) Urine Leukocyte Esterase Negative /uL (Negative) Urine RBC <1 /hpf (0 - 3) Urine Microscopic WBC 1 /HPF (0-3) Urine Squamous Epithelial Cells None seen /hpf (<5) Urine Bacteria None seen /hpf (None Seen) Urine Glucose Normal mg/dL (Normal) Microbiology Microbiology Date/Time Source Procedure Growth Status 03/18/25 22:09 Voided Urine Urine Culture - Preliminary Resulted 03/17/25 10:15 Blood Blood Culture - Preliminary NO GROWTH AFTER 72 HOURS OF INCUBATION. Resulted Assessment/Plan Assessment/Plan Blanco Love is a 29-year-old male with no past medical history who reports to the ED with abdominal pain with nausea and vomiting. Patient states that he was drinking last night and suddenly developed 7/10 sharp stabbing radiating from his right flank down to his testicle constant in nature. Patient denies any chest pain, shortness of breath, lightheadedness, weakness, dizziness, diarrhea, recent ingestion of spoiled food, recent travels, or recent sick contacts. Intractable abdominal pain with nausea and vomiting Mild right hydroureteralnephrosis due to 3 mm obstruction distal right ureteral calculus Alcohol use Obesity Lactic acidosis likely due to ureteral obstruction rule out sepsis PEGGY pending lithotripsy per urology today Plan discussed with: Patient Date of Service: March 20, 2025 Billing Provider: FER COOK DO Common Visit Codes: [id number] INP/OBS CARE(HIGH) FER COOK DO March 20, 2025 14:06
[2025-03-20] MEDS: CIPROFLOXACIN 400MG/200ML 200 ML IV ONE (14:39)
[2025-03-20] MEDS ORDERED: fentaNYL CITRATE 100 MCG/2 ML VL ONE (14:44)
[2025-03-20] MEDS ORDERED: PROPOFOL 10 MG/ML 20 ML IV ONE (14:44)
[2025-03-20] MEDS ORDERED: MIDAZOLAM HCL 2MG/2ML 2ml VIAL (1mg/ml) ONE (14:44)
[2025-03-20] MEDS ORDERED: LIDOCAINE 1% INJ PF 5ML AMP ONE (14:45)
[2025-03-20] MEDS ORDERED: DexAMETHasone SOD PHOS 10MG/1ML VIAL INJ ONE (14:51)
[2025-03-20] MEDS ORDERED: ONDANSETRON HCL 4 MG/2 ML VIAL ONE (14:51)
[2025-03-20] MEDS ORDERED: ePHEDrine SULFATE 50 MG/ML AMP ONE (15:19)
--- NOTE | 2025-03-20 15:41 | DVHNC2 ---
Procedure - OPERATIVE REPORT Pre-op. Diagnosis: Right distal ureteral stone, 3 mm Post-op. Diagnosis: Same as pre-op diagnosis Operation: Extracorporeal Shockwave Lithotripsy Anesthesia: General Indications: Patient was found to have symptomatic Urolithiasis. Patient is here to undergo ESWL therapy. Informed Consent: The procedure was explained to the patient. It's risks include but not limited to infection, bleeding, and damage to the kidney. Patient fully understood and signed the consent. Other options such as watchful waiting, Ureteroscopy, Percutaneous surgery and open surgery were also discussed. Details of Procedure: Under satisfactory anesthesia, the patient was positioned on the lithotripsy table. Using fluoroscopy the stone was localized. Starting at low energy levels, shockwave treatment was commenced. The energy level was gradually increased and stone was fragmented. Once the treatment was completed, patient was then taken off the lithotripsy table and sent to recovery room in stable condition. Specimens: None Complications: None Findings: Stone Laterality: right Stone Location: distal UVJ 3-4 mm stone Shocks Delivered: 3000 Max Power settin Fragmentation Quality: Well Notes: Visit Code: Procedure Codes: 17804 FRAGMENTING OF KIDNEY STONE. BRAULIO KHALIL MD March 20, 2025 15:41
[2025-03-20] MEDS ORDERED: MANNITOL FTV 25% 12.5 GM/50 ML 50 ML IV ONE ×2 (15:45→16:00)
[2025-03-20] MEDS ORDERED: KETOROLAC TROMETH 30 MG/ML 1ML VIAL IV ONE (16:00)
[2025-03-20] MEDS ORDERED: ONDANSETRON HCL 4 MG/2 ML VIAL IV ONE (16:00)
[2025-03-20] MEDS ORDERED: HYDROmorphone HCL 2 MG/ML VL/or syr IV PRN (16:00)
[2025-03-20] MEDS ORDERED: TAMS-35 PO (18:19)
--- NOTE | 2025-03-20 18:28 | DVHDS2 ---
Discharge Summary Date of Admission March 17, 2025 at 09:25 Date of Discharge: March 20, 2025 Labs/Diagnostic Data: Laboratory Results Test 03/18/25 22:09 03/18/25 05:56 03/17/25 06:35 Urine Color Colorless (Yellow) Urine Clarity Clear (Clear) Urine pH 6.5 (5.0-9.0) Urine Specific [place] 1.007 (1.001-1.035) Urine Protein Negative (Negative) Urine Ketones Negative (Negative) Urine Blood Negative /uL (Negative) Urine Nitrite Negative (Negative) Urine Bilirubin Negative (Negative) Urine Urobilinogen Normal mg/dL (Negative) Urine Leukocyte Esterase Negative /uL (Negative) Urine RBC <1 /hpf (0 - 3) Urine Microscopic WBC 1 /HPF (0-3) Urine Squamous Epithelial Cells None seen /hpf (<5) Urine Bacteria None seen /hpf (None Seen) Urine Glucose Normal mg/dL (Normal) Urine Opiates Screen Neg (NEGATIVE) Urine Fentanyl Screen Neg (NEGATIVE) Urine Barbiturates Screen Neg (NEGATIVE) Urine Phencyclidine Screen Neg (NEGATIVE) Urine Amphetamines Screen Neg (NEGATIVE) Urine Benzodiazepines Screen Neg (NEGATIVE) Urine Cocaine Screen Neg (NEGATIVE) Urine Cannabinoids Screen Neg (NEGATIVE) White Blood Count 11.5 10^3/uL (4.4-10.8) Red Blood Count 4.17 10^6/uL (4.5-5.90) Hemoglobin 12.5 g/dL (13.5-17.5) Hematocrit 36.8 % (41.0-53.0) Mean Corpuscular Volume 88.3 fL (80.0-100.0) Mean Corpuscular Hemoglobin 29.8 pg (28.0-32.0) Mean Corpuscular Hemoglobin Concent 33.8 g/dL (32.0-36.0) Red Cell Distribution Width 13.3 % (11.8-14.3) Platelet Count 306 10^3/uL (140-450) Mean Platelet Volume 7.8 fL (6.9-10.8) Neutrophils (%) (Auto) 64.6 % (37.0-80.0) Lymphocytes (%) (Auto) 24.6 % (10.0-50.0) Monocytes (%) (Auto) 9.9 % (0.0-12.0) Eosinophils (%) (Auto) 0.7 % (0.0-7.0) Basophils (%) (Auto) 0.2 % (0.0-2.0) Neutrophils # (Auto) 7.4 10 ^3/uL (1.6-8.6) Lymphocytes # (Auto) 2.8 10 ^3/uL (0.4-5.4) Monocytes # (Auto) 1.1 10 ^3/uL (0-1.3) Eosinophils # (Auto) 0.1 10 ^3/uL (0-0.8) Basophils # (Auto) 0 10 ^3/uL (0-0.2) Nucleated Red Blood Cells 0.0 % Sodium Level 140 mmol/L (136-145) Potassium Level 3.9 mmol/L (3.5-5.1) Chloride Level 106 mmol/L (98-107) Carbon Dioxide Level 26 mmol/L (20-31) Anion Gap 8 (5-15) Blood Urea Nitrogen 19 mg/dL (9-23) Creatinine 1.40 mg/dL (0.700-1.30) Glomerular Filtration Rate Calc 69 mL/min (>90) BUN/Creatinine Ratio 13.6 (10.0-20.0) Serum Glucose 108 mg/dL (74-106) Calcium Level 9.2 mg/dL (8.7-10.4) Total Bilirubin 0.6 mg/dL (0.2-1.0) Aspartate Amino Transferase (AST) 33 U/L (13-40) Alanine Aminotransferase (ALT) 31 U/L (7-40) Alkaline Phosphatase 73 U/L (46-116) Total Protein 6.5 g/dL (5.7-8.2) Albumin 4.1 g/dL (3.2-4.8) Lactic Acid Level 2.8 mmol/L (0.4-2.0) Other Laboratory Tests 03/18/25 05:56 Brief Hx & Hospital Course: Blanco Love is a 29-year-old male with no past medical history who reports to the ED with abdominal pain with nausea and vomiting. Patient states that he was drinking last night and suddenly developed 7/10 sharp stabbing radiating from his right flank down to his testicle constant in nature. Patient denies any chest pain, shortness of breath, lightheadedness, weakness, dizziness, diarrhea, recent ingestion of spoiled food, recent travels, or recent sick contacts. Intractable abdominal pain with nausea and vomiting Mild right hydroureteralnephrosis due to 3 mm obstruction distal right ureteral calculus Alcohol use Obesity Lactic acidosis likely due to ureteral obstruction rule out sepsis PEGGY underwent lithotripsy did well sent to home with tamsulosin Condition at Discharge: Fair Final Diagnosis/Problems List see above Discharge Disposition: Home Discharge Instruct/Medications Diet: Cardiac 2g Na,low cholest Activity: No Restrictions, As Tolerated Discharge Statement: "Patient was advised to return to the ER or call 911 if any headaches, dizziness, shortness of breath, chest pain, abdominal pain, bleeding, fevers, or worsening of medical condition. Patient was counseled about treatment plan, medications, possible side effects, patient�verbalized understanding. All questions were answered to the best of my ability. This discharge took greater then 30 minutes in planning, reviewing documentation, counseling the patient, and discussing with other team members." ASSESSMENT ASSESSMENT Assessment Date of Service: March 20, 2025 Billing Provider: FER COOK DO Common Visit Codes: 51765-IJU/OBS DISCH DAY >30min Date of Service: March 20, 2025 Billing Provider: FER COOK DO Common Visit Codes: 48219-ZIQ/OBS DISCH DAY >30min Date of Service: March 20, 2025 Billing Provider: FER COOK DO Common Visit Codes: 68808-TSD/OBS DISCH DAY >30min FER COOK DO March 20, 2025 18:28
== END 2025-03-20 19:00 | disposition home or self-care (01) | DRG 872 ==
LOC: EEVIPCON 04:23 → ER 04:23 → OVERFLOW 09:25 → WEST WING 17:27
PROVIDERS: ADMIT Internal Medicine Geriatric Medicine; ATTEND Internal Medicine Geriatric Medicine
PROC: 0TC68ZZ Extirpation of Matter from Right Ureter, Via Natural or Artificial Opening Endoscopic (ICD-10-PCS; principal; 2025-03-17)
DX: A41.9 Sepsis, unspecified organism (principal); E87.20 Acidosis, unspecified; N13.2 Hydronephrosis with renal and ureteral calculous obstruction; N17.9 Acute kidney failure, unspecified; E66.9 Obesity, unspecified; Z80.3 Family history of malignant neoplasm of breast; Z68.36 Body mass index [BMI] 36.0-36.9, adult
CPT/HCPCS: 36415; 74177; 76775; 80053; 80307; 81001; 83605; 85025; 87040; 87086; 96361; 96374; 96375; 99291; G0378; J1100; J2250; J2405; J2470; J2704; J3490